=== PATIENT | female | born 1980 | race Caucasian/White ===

== ENCOUNTER 2018-07-26 06:04 | Outpatient (CLI) | payer OTHER, MEDICAID, SELFPAY ==
--- NOTE | 2018-07-26 07:32 | PM.OBTRLD ---
Visit Information Visit Information Comments/Additional reasons for admission: Patient is a 38-year-old female at 36 weeks she is G3 para 2. She received her health care down at [facility]. She comes in with complaints of leaking of fluid. On evaluation in the labor and delivery for she is AmniSure positive. Nurse examined her cervix she has high thick and closed. Patient's NST is reactive. Patient's contractions are intermittent. Patient was receiving her health care and care at [facility] because she is high risk with a previous history of myocardial infarction. Based on her examination reactive NST 36 weeks gestational age status her cervix being high and closed in intermittent contractions we thought it best for her to be discharged from the hospital and transported to [facility]. Her and daughter with her. After reviewing with the patient about driving her down her going by ambulance they felt comfortable as well as I driving down. [facility] was contacted. And they will proceed there.
--- NOTE | 2018-07-26 07:35 | P.TNLD_ITS ---
Visit Information Visit Information Comments/Additional reasons for admission: Patient is a 38-year-old female at 36 weeks she is G3 para 2. She received her health care down at [facility]. She comes in with complaints of leaking of fluid. On evaluation in the labor and delivery for she is AmniSure positive. Nurse examined her cervix she has high thick and closed. Patient's NST is reactive. Patient's contractions are intermittent. Patient was receiving her health care and care at [facility] because she is high risk with a previous history of myocardial infarction. Based on her examination reactive NST 36 weeks gestational age status her cervix being high and closed in intermittent contractions we thought it best for her to be discharged from the hospital and transported to [facility]. Her and daughter with her. After reviewing with the patient about driving her down her going by ambulance they felt comfortable as well as I driving down. [facility] was contacted. And they will proceed there.
== END 2018-07-26 07:10 | disposition home or self-care (01) ==
LOC: LABOR 08:15 → OB 07-28 05:40
PROVIDERS: Visit Provider Family Medicine
DX: O60.03 Preterm labor without delivery, third trimester (principal); Z3A.36 36 weeks gestation of pregnancy
CPT/HCPCS: 59025; 84112; G0378; G0379

== ENCOUNTER 2020-12-10 14:08 | Emergency (ER) | payer OTHER, MEDICAID, SELFPAY ==
[2020-12-10 14:17] VITALS: BP 180/95; PULSE 82; RESP 22; TEMP 37.2; O2SAT 97
[2020-12-10 14:50] LABS: COVID19 -Nasal RAPID Negative (Negative)
[2020-12-10 16:02] VITALS: BP 162/90; PULSE 64; RESP 16; O2SAT 99
[2020-12-10 17:10] VITALS: TEMP 37
--- NOTE | 2020-12-10 17:59 | ED_ITS ---
HPI - Dental/Oral General Chief complaint: Dental/Oral Stated complaint: dizzy/rt upper tooth infection x4 days Time Seen by Provider: 12/10/20 17:59 Source: patient Mode of arrival: Ambulatory Limitations: no limitations History of Present Illness HPI Narrative: This is a 40-year-old female who comes emergency department with multiple complaints the main being that her right posterior 2 has been painful with pain starting to radiate to her jaw and towards her ear. She has also had some throat pain. Patient states she has had 4 days of symptoms. She has felt warm but has not had objective fevers. She does feel a little bit but no syncope. No chest pain or shortness of breath she has had some nausea but states it is improved at this moment. Patient has also had some abdominal discomfort. No diarrhea constipation. She denies frequency, dysuria or urgency. Patient denies any other medical conditions. She states she did crack or tooth about 2 months ago she has a dental appointment but has not been there yet. She is also describe some chills and muscle aches. She denies any other prior surgeries. No allergies to medications. MD Complaint: tooth pain Location: Tooth # (1) Related Data Previous Rx's Medication Instructions Recorded ondansetron HCl [Zofran] 4 mg PO Q6H PRN #10 tab 12/10/20 penicillin V potassium 500 mg PO QID #40 tab 12/10/20 Allergies Allergy/AdvReac Type Severity Reaction Status Date / Time No Known Drug Allergies Allergy Verified 12/10/20 18:06 Review of Systems Review of Systems ROS Unobtainable: All systems reviewed & are unremarkable except as noted in HPI and below Exam Narrative Exam Narrative: GEN: well nourished, well appearing female, alert and oriented x 3, patient appears to be in mild distress. HEENT: Atraumatic, pupils are equal round reactive to light, extraocular movements are intact, nares are clear, TMs are are opaque with fluid bilaterally but no erythema, light reflex is present, there is no conjunctival pallor. Throat is without any exudates, bilateral erythema, mild bilateral tonsillar enlargement, no uvular deviation, no lymphadenopathy. No meningeal signs. No facial swelling, redness or induration or fluctuance noted. HEART: Regular rate and rhythm without murmur, clicks, rubs. No carotid bruits, pulses are equal in upper and lower extremities LUNGS:Lungs clear to auscultation, no wheezes, rales, crackles, chest moves symmetrically ABD:bowel sounds normal, soft, non-tender, no guarding, rebound, rigidity, no masses noted, no hepatosplenomegaly MSCL: Non-tender, no muscle atrophy, full range of motion NEURO:CN 2-12 intact, sensation normal SKIN: Patient has some erythema on her anterior chest, it radiates slightly up towards her neck but no other skin changes appreciated. No vesicles, no blisters. It is not rate it, there is no papules or other changes appreciated it does not appear cellulitic with no more. Initial Vital Signs Initial Vital Signs: Vital Signs Temperature 98.9 F 12/10/20 14:17 Pulse Rate 82 12/10/20 14:17 Respiratory Rate 22 12/10/20 14:17 Blood Pressure 180/95 H 12/10/20 14:17 Pulse Oximetry 97 12/10/20 14:17 Course Orders Ordered: ED Orders 12/10/20 14:33 COVID19 Stat 12/10/20 18:00 Throat Culture Stat Discontinued Medications Ketorolac Tromethamine (Ketorolac 60 Mg/2 Ml Vial) 30 mg IM NOW ONE Stop: 12/10/20 18:00 Last Admin: 12/10/20 18:06 Dose: 30 mg Documented by: JAMIE Ondansetron HCl (Ondansetron 4 Mg Odt) 4 mg SL NOW ONE Stop: 12/10/20 18:00 Last Admin: 12/10/20 18:06 Dose: 4 mg Documented by: JAMIE Vital Signs Vital signs: Vital Signs - 8 hr 12/10/20 14:17 12/10/20 16:02 12/10/20 17:10 Temperature 98.9 F 98.6 F Pulse Rate 82 64 Respiratory Rate 22 16 Blood Pressure 180/95 H 162/90 H Pulse Oximetry 97 99 12/10/20 18:29 Temperature Pulse Rate 62 Respiratory Rate 16 Blood Pressure 145/80 H Pulse Oximetry 99 MDM - Dental/Oral Lab Data Attestation: I reviewed the patient's lab results. Labs: Lab Results 12/10/20 Range/Units 14:33 SARS-CoV-2 (PCR) Negative (Negative) Point of Care Testing Test Results Negative Rapid Strep A Negative Urine Dip Bedside Urine Glucose Negative Bedside Urine Bilirubin - Negative Bedside Urine Ketone - Negative Urine Specific [place] 1.015 Bedside Urine Occult Blood - Negative Bedside Urine pH 6.0 Bedside Urine Protein - Negative Bedside Urine Urobilinogen - Negative Bedside Urine Nitrite - Negative Bedside Urine Leukocytes - Negative Esterase MDM Narrative Medical decision making narrative: 40-year-old female comes with multiple complaints but her main concern is right tooth pain that seems to be radiating towards her ear cheek. She has had some systemic symptoms but does not have any signs of sepsis. She did have a sore throat with some erythema and mild tonsillar enlargement and rash point of care strep was negative. Throat culture was ordered. Patient's urine was negative. She has some improvement pain medication and antinausea medication. Plan to start her on oral antibiotics for dental infection, no obvious sign of abscess at this time. She does have dental appointment on was given low threshold to return for repeat evaluation if she has worsening. Discharge Plan Departure Patient Disposition: Home Clinical Impression: Infected tooth Instructions: DI for Dental Pain Activity Restrictions/Additional Instructions: Follow up with your dentist at your scheduled appointment on . Take antibiotics until completely gone. You may take nausea medication as prescribed take 1 tablet every 6 hours as needed for nausea. Return to the ER for fevers greater 100.4 F, rapidly worsening swelling of your face, cheek, airway, lips or tongue, passing out, shortness of breath, new chest pain, persistent vomiting, stridor high-pitched wheezing when breathing or other new or concerning symptoms. Prescriptions: New penicillin V potassium 500 mg tablet 500 mg PO QID Qty: 40 RF: 0 ondansetron HCl [Zofran] 4 mg tablet 4 mg PO Q6H PRN (Reason: nausea and vomiting) Qty: 10 RF: 0
[2020-12-10] MEDS: KETOROLAC 60 MG/2 ML VIAL 30 MG IM (18:06)
[2020-12-10] MEDS: ONDANSETRON 4 MG ODT SL (18:06)
[2020-12-10 18:29] VITALS: BP 145/80; PULSE 62; RESP 16; O2SAT 99
== END 2020-12-10 18:31 | disposition home or self-care (01) ==
PROVIDERS: Emergency Provider Emergency Medicine
DX: K04.7 Periapical abscess without sinus (principal); R10.9 Unspecified abdominal pain
CPT/HCPCS: 81003; 81025; 87070; 87635; 87880; 96372; 99281; 99283; C9803; J1885

== ENCOUNTER 2021-06-29 11:57 | Emergency (ER) | payer OTHER, MEDICAID, SELFPAY ==
[2021-06-29] VITALS (8 sets, daily range): BP systolic 131–174; BP diastolic 80–110; PULSE 56–85; RESP 12–18; TEMP 36.9; O2SAT 96–98; BMI 26.5
--- NOTE | 2021-06-29 12:22 | DI.RAD.S_ITS ---
PROCEDURE: XR CHEST 1V INDICATIONS: chest pain TECHNIQUE: One view of the chest was acquired. COMPARISON: None. FINDINGS: Surgical changes and devices: None. Lungs and pleura: Lungs are clear. No pleural effusions or pneumothorax. Mediastinum: Mediastinal contours appear normal. Heart size is normal. Bones and chest wall: No suspicious bony lesions. Overlying soft tissues appear unremarkable. IMPRESSION: Portable chest within normal limits. Dictated by: Pako Garza M.D. on 06/29/2021 at 11:57 Approved by: Pako Garza M.D. on 06/29/2021 at 11:57
[2021-06-29 12:41] LABS: COVID19 -Nasal RAPID Negative (Negative)
[2021-06-29 13:28] LABS: Add Manual Diff / Slide Review NO; Basophils Absolute Auto 100 /uL (0-100); Basophils Percent Auto 0.5 % (0-2); Eosinophils Absolute Auto 100 /uL (0-450); Eosinophils Percent Auto 0.6 % (2-4); Hematocrit 43.4 % (36-46); Hemoglobin 14.6 g/dL (12.0-16.0); Lymphocytes Absolute Auto 2100 /uL (1100-4500); Lymphocytes Percent Auto 17.9 % (25-40); Mean Corpuscular HGB Conc 33.6 % (30-36); Mean Corpuscular Hemoglobin 29.7 PG (26-34); Mean Corpuscular Volume 88.4 fL (80-100); Monocytes Absolute Auto 500 /uL (0-900); Neutrophils Absolute Auto 9100 /uL (1500-7000); Platelet Count 295 X10^3/uL (150-400); Red Blood Cell Count 4.91 X10^6/uL (4.0-5.2); Red Cell Distribution Width 13.3 % (11.6-14.8); White Blood Cell Count 11.8 X10^3/uL (4.5-11.0)
[2021-06-29 13:44] LABS: Alanine Aminotransferase 28 IU/L (<35); Albumin 4.4 g/dL (3.5-5.0); Albumin Globulin Ratio 1.5 (1.0-2.8); Alkaline Phosphatase 56 U/L (38-126); Aspartate Aminotransferase 33 IU/L (14-36); BUN Creatinine Ratio 12.1 (6-22); Bilirubin Total 0.6 mg/dL (0.2-1.3); Blood Urea Nitrogen 8 mg/dL (7-17); Calcium 9.1 mg/dL (8.4-10.2); Carbon Dioxide 24 mmol/L (22-32); Chloride 107 mmol/L (98-107); Creatine Kinase 113 U/L (30-135); Estimated Glomerular Filt Rate > 60.0 mL/min (>60); Globulin 2.9 g/dL (1.7-4.1); Glucose 92 mg/dL (70-100); HEMOLYSIS < 15 (0-50); Lipase 69 U/L (23-300); Potassium 3.3 mmol/L (3.4-5.1); Sodium 137 mmol/L (137-145); Total Protein 7.3 g/dL (6.3-8.2)
[2021-06-29 13:55] LABS: Troponin I < 0.012 ng/mL (0.01-0.034)
--- NOTE | 2021-06-29 14:24 | ED_ITS ---
HPI - Headache General Chief Complaint: Headache Stated Complaint: headache for 1 week// numbness going down arms Time Seen by Provider: 06/29/21 14:21 Mode of arrival: Ambulatory Limitations: no limitations History of Present Illness HPI Narrative: Patient is a 41 year old female who presents with headache ongoing for over 1 week. It got significantly worse last night she was unable to sleep. She denies any nausea. She has only taken Tylenol his for pain without any relief. She says last night her pain was wait worse. She denies any photosensitivity or no he has sensitivity. She started having some tingling down both arms. No weakness. She is tearful. She does not typically get headaches. She denies any fever. Related Data Previous Rx's Medication Instructions Recorded ondansetron HCl 4 mg tablet 4 mg PO Q6H PRN #10 tab 12/10/20 (Zofran) penicillin V potassium 500 mg 500 mg PO QID #40 tab 12/10/20 tablet Allergies Allergy/AdvReac Type Severity Reaction Status Date / Time No Known Drug Allergies Allergy Verified 12/10/20 18:06 Review of Systems Review of Systems Narrative: GENERAL: Denies chills, fatigue, malaise, fever, sweats, travel HEENT: Denies sinus pain, ear pain, sore throat, difficulty swallowing, neck pain RESPIRATORY: Denies dyspnea, cough, wheezing, hemoptysis, sputum. CARDIOVASCULAR: Denies chest pain, palpitations, orthopnea, edema GASTROINTESTINAL: Denies nausea, vomiting, abdominal pain, diarrhea, constipation, melena. : Denies dysuria, frequency, incontinence, hematuria, urinary retention, flank pain. MUSCULOSKELETAL: Denies weakness, joint pain, or bony pain SKIN: No rash, no erythema, no pruritus NEUROLOGIC: See HPI PSYCHIATRIC: No concerning psychosocial issues. 12 point review of systems is negative except for those stated above and HPI Patient History Social History Smoking Status: Former smoker Smoking Status: Former smoker Substance Use Type: marijuana Exam Initial Vital Signs Initial Vital Signs: Vital Signs Temperature 98.5 F 06/29/21 12:16 Pulse Rate 85 06/29/21 12:16 Respiratory Rate 18 06/29/21 12:16 Blood Pressure 174/110 H 06/29/21 12:16 Pulse Oximetry 96 06/29/21 12:16 GENERAL: Patient is a 41-year-old female is slightly tearful appears uncomfortable in no acute distress. NECK: Supple no meningeal signs HEENT: Head atraumatic,EOMI, pupils reactive, face symmetric, moist mucous membranes CARDIOVASCULAR: Regular rate and rhythm without murmurs, rubs or gallops. RESPIRATORY: Breath sounds equal bilaterally, no wheezes rales or rhonchi. ABDOMEN: Soft, nontender. Normoactive bowel sounds all 4 quadrants. No guarding or rebound. EXTREMITIES: Normal range of motion, no clubbing or edema. Neurovascularly intact NEUROLOGICAL: Alert and oriented x4.Normal gait and speech. Cranial nerves II through XII grossly intact. Good [id number], good [id number], strength equal bilaterally, no dysarthria or aphasia, sensation in tact to soft touch bilaterally, no visual changes, no facial droop SKIN: Warm, dry, no laceration, no petechiae, no rashes or lesions. Scores NIH Stroke Scale Level of Conciousness: Alert, keenly responsive Ask month/age: Answers both questions correctly. Open/close eyes, close hand: Performs both tasks correctly Best gaze horizontal: Normal Visual reeder: No visual loss Facial palsy: Normal symetrical movement Left arm drift: No drift for full 10 sec Right arm drift: No drift for full 10 sec Left leg drift: No drift for full 5 sec Right leg drift: No drift for full 5 sec Limb ataxia: Absent Sensory on face/arms/legs: Normal, no sensory loss Best language: No aphasia, normal Dysarthria: Normal Extinction or inattention: No abnormality Total NIH Stroke scale score: 0 Course Orders Ordered: ED Orders 06/29/21 12:22 XR chest 1V Stat 06/29/21 12:25 COVID19 -Nasal swab/Pre-Proc Stat 06/29/21 12:29 EKG-12 Lead Stat 06/29/21 13:15 Complete Blood Count AUTO DIFF Stat Comprehensive Metabolic Panel Stat Lipase Stat Troponin & CK Cardiac Panel Stat 06/29/21 14:30 CT head/brain wo con Stat Discontinued Medications Sodium Chloride (Normal Saline 0.9%) 1,000 mls @ 1,000 mls/hr IV BOLUS ONE Stop: 06/29/21 15:29 Last Infusion: 06/29/21 15:58 Dose: 0 mls/hr Documented by: Admin: 06/29/21 14:36 Dose: 1,000 mls/hr Documented by: ANGELINA Ketorolac Tromethamine (Ketorolac 30 Mg/Ml Vial) 30 mg IV NOW ONE Stop: 06/29/21 14:31 Last Admin: 06/29/21 14:35 Dose: 30 mg Documented by: ANGELINA Prochlorperazine (Prochlorperazine 10 Mg/2 Ml Vial) 10 mg IV NOW ONE Stop: 06/29/21 14:31 Last Admin: 06/29/21 14:35 Dose: 10 mg Documented by: ANGELINA Vital Signs Vital signs: Vital Signs - 8 hr 06/29/21 12:16 06/29/21 13:10 06/29/21 13:30 Temperature 98.5 F Pulse Rate 85 72 67 Respiratory Rate 18 12 Blood Pressure 174/110 H Pulse Oximetry 96 98 97 06/29/21 14:00 06/29/21 14:30 06/29/21 14:52 Temperature Pulse Rate 68 76 70 Respiratory Rate 16 15 17 Blood Pressure 131/80 131/81 Pulse Oximetry 97 97 97 06/29/21 15:00 06/29/21 15:30 Temperature Pulse Rate 67 56 L Respiratory Rate 12 17 Blood Pressure Pulse Oximetry 97 97 MDM - Headache Lab Data Result diagrams: 06/29/21 13:15 06/29/21 13:15 Labs: Lab Results 06/29/21 06/29/21 06/29/21 Range/Units 12:25 13:15 13:15 WBC 11.8 H (4.5-11.0) X10^3/uL RBC 4.91 (4.0-5.2) X10^6/uL Hgb 14.6 (12.0-16.0) g/dL Hct 43.4 (36-46) % MCV 88.4 (80-100) fL MCH 29.7 (26-34) PG MCHC 33.6 (30-36) % RDW 13.3 (11.6-14.8) % Plt Count 295 (150-400) X10^3/uL Neut % (Auto) 77.0 H (50-75) % Lymph % (Auto) 17.9 L (25-40) % Wilkes % (Auto) 4.0 (3-14) % Eos % (Auto) 0.6 L (2-4) % Baso % (Auto) 0.5 (0-2) % Neut # (Auto) 9100 H (1352-1357) /uL Lymph # (Auto) 2100 (8378-6509) /uL Wilkes # (Auto) 500 (0-900) /uL Eos # (Auto) 100 (0-450) /uL Baso # (Auto) 100 (0-100) /uL Sodium 137 (137-145) mmol/L Potassium 3.3 L (3.4-5.1) mmol/L Chloride 107 (98-107) mmol/L Carbon Dioxide 24 (22-32) mmol/L BUN 8 (7-17) mg/dL Creatinine 0.66 (0.52-1.04) mg/dL Estimated GFR > 60.0 (>60) mL/min BUN/Creatinine Ratio 12.1 (6-22) Glucose 92 (70-100) mg/dL Calcium 9.1 (8.4-10.2) mg/dL Total Bilirubin 0.6 (0.2-1.3) mg/dL AST 33 (14-36) IU/L ALT 28 (<35) IU/L Alkaline Phosphatase 56 (38-126) U/L Total Creatine Kinase 113 (30-135) U/L CK-MB (CK-2) 1.10 (<2.37) ng/mL CK-MB (CK-2) Rel Index 1.0 L (1.5-5.0) % Troponin I < 0.012 (0.01-0.034) ng/mL Total Protein 7.3 (6.3-8.2) g/dL Albumin 4.4 (3.5-5.0) g/dL Globulin 2.9 (1.7-4.1) g/dL Albumin/Globulin Ratio 1.5 (1.0-2.8) Lipase 69 (23-300) U/L SARS-CoV-2 (PCR) Negative (Negative) Imaging Data CT scan - head: Radiologist's Impression: PROCEDURE:? CT HEAD/BRAIN WO CON ? INDICATIONS:? worst headache of life ? TECHNIQUE:? Noncontrast 4.5 mm thick angled axial sections acquired from the foramen magnum to the vertex, with coronal and sagittal reformats.? For radiation dose reduction, the following was used:? automated exposure control, adjustment of mA and/or kV according to patient size.? ? COMPARISON:? None. ? FINDINGS:? Image quality:? Excellent.? ? CSF spaces:? Basal cisterns are patent.? No extra-axial fluid collections.? Ventricles are normal in size and shape.? ? Brain:? No midline shift.? No intracranial masses or hemorrhage.? Ellis-white matter interface is normal.? ? Skull and face:? Calvarium and visualized facial bones are intact, without suspicious lesions.? ? Sinuses:? Visualized sinuses and mastoids are clear.? ? IMPRESSION:? No CT evidence of acute intracranial process.? ? ? Dictated by: Marcella Dangelo M.D. on 06/29/2021 at 14:47 ? ? Chest x-ray: Radiologist's Impression: PROCEDURE:? XR CHEST 1V ? INDICATIONS:? chest pain ? TECHNIQUE:? One view of the chest was acquired.? ? COMPARISON:? None. ? FINDINGS:? ? Surgical changes and devices:? None.? ? Lungs and pleura:? Lungs are clear.? No pleural effusions or pneumothorax.? ? Mediastinum:? Mediastinal contours appear normal.? Heart size is normal.? ? Bones and chest wall:? No suspicious bony lesions.? Overlying soft tissues appear unremarkable.? ? ? IMPRESSION:? ? Portable chest within normal limits. ? ? ? Dictated by: Pako Garza M.D. on 06/29/2021 at 11:57 ? ? ECG Data Interpretation: Normal sinus rhythm rate 78 NJ interval 132 QRS 90 QTC 469 [place]ino inversion noted in the 3 nonpathologic Q-wave noted in lead [address] changes no priors to compare MDM Narrative Medical decision making narrative: Patient has been having headache ongoing for 1 week for rest of week getting worse not relieved with Tylenol. She is having numbness and tingling in both her but no of focal deficits. Head CT is negative. If the headache improves with Compazine Toradol and fluids. At this time she feels ready and able to go home. Discharge Plan Departure Patient Disposition: Home Clinical Impression: Headache Instructions: DI for Headache Activity Restrictions/Additional Instructions: *You have been diagnosed with headache *What to do: At this time CT scan blood work COVID are all negative. If you continue to have headaches you may need Neurology refer *Continue to take medications as directed Motrin 800 mg every 8 hours if needed for ghec-fn-qaguhlar pain Tylenol 1000 mg every 6 hours if needed for bukj-sg-bybllomy pain *Follow up with your primary care provider in 2-3 days *Return to ER if you should have increasing pain, fever, weakness, numbness, tingling any new, worsening or concerning symptoms Prescriptions: No Action penicillin V potassium 500 mg tablet 500 mg PO QID Qty: 40 RF: 0 ondansetron HCl [Zofran] 4 mg tablet 4 mg PO Q6H PRN (Reason: nausea and vomiting) Qty: 10 RF: 0 Referrals: Located Within [facility] [Outside]
--- NOTE | 2021-06-29 14:30 | DI.CT.S_ITS ---
PROCEDURE: CT HEAD/BRAIN WO CON INDICATIONS: worst headache of life TECHNIQUE: Noncontrast 4.5 mm thick angled axial sections acquired from the foramen magnum to the vertex, with coronal and sagittal reformats. For radiation dose reduction, the following was used: automated exposure control, adjustment of mA and/or kV according to patient size. COMPARISON: None. FINDINGS: Image quality: Excellent. CSF spaces: Basal cisterns are patent. No extra-axial fluid collections. Ventricles are normal in size and shape. Brain: No midline shift. No intracranial masses or hemorrhage. Ellis-white matter interface is normal. Skull and face: Calvarium and visualized facial bones are intact, without suspicious lesions. Sinuses: Visualized sinuses and mastoids are clear. IMPRESSION: No CT evidence of acute intracranial process. Dictated by: Marcella Dangelo M.D. on 06/29/2021 at 14:47 Approved by: Marcella Dangelo M.D. on 06/29/2021 at 14:48
[2021-06-29] MEDS: KETOROLAC 30 MG/ML VIAL IV (14:35)
[2021-06-29] MEDS: PROCHLORPERAZINE 10 MG/2 ML VIAL IV (14:35)
[2021-06-29] MEDS: SODIUM CHLORIDE 0.9% 1,000 ML 1000 ML IV (14:36)
== END 2021-06-29 15:58 | disposition home or self-care (01) ==
PROVIDERS: Emergency Provider Emergency Medicine
DX: R51.9 Headache, unspecified (principal); Z20.822 Contact with and (suspected) exposure to COVID-19
CPT/HCPCS: 36415; 70450; 71045; 80053; 82550; 82553; 83690; 84484; 85025; 87635; 93005; 96361; 96374; 96375; 99284; C9803; J0780; J1885

== ENCOUNTER 2023-06-25 13:51 | Emergency (ER) | payer OTHER, MEDICAID, SELFPAY ==
[2023-06-25] VITALS (9 sets, daily range): BP systolic 139–192; BP diastolic 84–105; PULSE 60–100; RESP 16; TEMP 36.7; O2SAT 98–99; BMI 26.5
[2023-06-25 14:21] LABS: Add Manual Diff / Slide Review NO; Basophils Absolute Auto 100 /uL (0-100); Basophils Percent Auto 0.8 % (0-2); Eosinophils Absolute Auto 100 /uL (0-450); Eosinophils Percent Auto 0.8 % (2-4); Hematocrit 41.7 % (36-46); Hemoglobin 14.4 g/dL (12.0-16.0); Lymphocytes Absolute Auto 2300 /uL (1100-4500); Lymphocytes Percent Auto 24.6 % (25-40); Mean Corpuscular HGB Conc 34.6 % (30-36); Mean Corpuscular Hemoglobin 30.3 PG (26-34); Mean Corpuscular Volume 87.6 fL (80-100); Monocytes Absolute Auto 600 /uL (0-900); Monocytes Percent Auto 6.2 % (3-14); Neutrophils Absolute Auto 6300 /uL (1500-7000); Neutrophils Percent Auto 67.6 % (50-75); Platelet Count 286 X10^3/uL (150-400); Red Blood Cell Count 4.75 X10^6/uL (4.0-5.2); Red Cell Distribution Width 13.1 % (11.6-14.8); White Blood Cell Count 9.3 X10^3/uL (4.5-11.0)
[2023-06-25 14:35] LABS: Alanine Aminotransferase 35 IU/L (<35); Albumin 4.5 g/dL (3.5-5.0); Albumin Globulin Ratio 1.6 (1.0-2.8); Alkaline Phosphatase 56 U/L (38-126); Aspartate Aminotransferase 36 IU/L (14-36); BUN Creatinine Ratio 9.2 (6-22); Bilirubin Total 0.5 mg/dL (0.2-1.3); Blood Urea Nitrogen 7 mg/dL (7-17); Calcium 9.2 mg/dL (8.4-10.2); Carbon Dioxide 25 mmol/L (22-32); Chloride 106 mmol/L (98-107); Estimated Glomerular Filt Rate > 60 mL/min (>60); Globulin 2.9 g/dL (1.7-4.1); Glucose 92 mg/dL (70-100); HEMOLYSIS 16 (0-50); Lipase 113 U/L (23-300); Potassium 3.3 mmol/L (3.4-5.1); Sodium 139 mmol/L (137-145); Total Protein 7.4 g/dL (6.3-8.2)
[2023-06-25 14:59] LABS: Influenza A - CEPHEID Flu A NEGATIVE (NEGATIVE); Influenza B - CEPHEID Flu B NEGATIVE (NEGATIVE); Respiratory Syncytial Virus Negative (Negative)
[2023-06-25 15:00] LABS: COVID-19 CEPHEID 4-PLEX PCR Negative (Negative)
--- NOTE | 2023-06-25 16:42 | DI.CT.S_ITS ---
PROCEDURE: CT ABDOMEN PELVIS W CON INDICATIONS: abdominal pain, N/V/D TECHNIQUE: After the administration of oral and IV contrast, axial sections were acquired from the lung bases to the pubic symphysis. Coronal and sagittal reformats were performed. For radiation dose reduction, the following was used: automated exposure control, adjustment of mA and/or kV according to patient size. COMPARISON: None. FINDINGS: Image quality: Excellent. Lung bases: Bibasilar scars and atelectasis. Small hiatal hernia. Heart: No significant findings. ABDOMEN: Liver: Unremarkable. Gallbladder: Unremarkable. Biliary ducts: Unremarkable. Pancreas: Unremarkable. Spleen: Unremarkable. Adrenal Glands: Unremarkable. Kidneys and Ureters: Unremarkable. Stomach and Bowel: Stomach, small bowel loops, and colon are normal in caliber. Appendix is normal. There are few colonic diverticula. No CT findings to suggest acute diverticulitis. Peritoneum: No abnormal intraperitoneal fluid. No free air. Ventral Wall: No hernia. Abdominal Nodes: No retroperitoneal or mesenteric adenopathy by size criteria. Vessels: Aorta and inferior vena cava are normal in size. PELVIS: Pelvic Organs: There is a 1.6 cm cyst in the left ovary with peripheral enhancement, most likely a corpus luteum. Uterus and right ovary are unremarkable. No free fluid in the cul-de-sac or adnexa. Bladder: Unremarkable. Pelvic Nodes: No enlarged lymph nodes. Miscellaneous: No inguinal hernias are seen. Bones: Unremarkable. IMPRESSION: 1. No acute inflammatory process is seen on CT in abdomen or pelvis. 2. Mild diverticulosis. No diverticulitis. 3. Normal appendix. 4. A 1.4 cm corpus luteal cyst in the left ovary. 5. Bibasilar scars and atelectasis. Dictated by: Alton Vergara M.D. on 06/25/2023 at 16:56 Approved by: Alton Vergara M.D. on 06/25/2023 at 17:00
--- NOTE | 2023-06-25 16:42 | ED.ABDPAIN ---
HPI - Abdominal Pain General Chief Complaint: Abdominal Pain Stated Complaint: stomach pains Time Seen by Provider: 06/25/23 14:33 History of Present Illness HPI narrative: 43-year-old female without significant chronic medical history presents with a chief complaint of about 1 week of multiple episodes of diarrhea along with cramping abdominal pain. She states her discomfort seems to build until she has a bowel movement at which point it improves. She denies recent antibiotics, travel, exposure to other ill persons or bad food. Related Data Previous Rx's Medication Instructions Recorded ondansetron HCl 4 mg tablet 4 mg PO Q6H PRN nausea and 12/10/20 (Zofran) vomiting #10 tabs penicillin V potassium 500 mg 500 mg PO QID #40 tabs 12/10/20 tablet hydrocodone 5 mg-acetaminophen 325 1 tab PO Q4-6H PRN pain #10 tabs 06/25/23 mg tablet hyoscyamine sulfate 0.125 mg tablet 0.125 mg PO BID-QID PRN dyspepsia 06/25/23 #20 tabs hyoscyamine sulfate 0.125 mg tablet 0.125 mg PO BID-QID PRN dyspepsia 06/25/23 #20 tabs ondansetron 4 mg disintegrating 4 mg PO TID-QID PRN nausea and 06/25/23 tablet vomiting #10 tabs ondansetron 4 mg disintegrating 4 mg PO TID-QID PRN nausea and 06/25/23 tablet vomiting #10 tabs Allergies Allergy/AdvReac Type Severity Reaction Status Date / Time No Known Drug Allergies Allergy Verified 12/10/20 18:06 Review of Systems Review of Systems Narrative: GENERAL: Denies chills, fatigue, malaise, fever, sweats. HEENT: Denies sinus pain, ear pain, sore throat, difficulty swallowing, dizziness. RESPIRATORY: Denies dyspnea, cough, wheezing, hemoptysis, sputum. CARDIOVASCULAR: Denies chest pain, palpitations, orthopnea, edema, GASTROINTESTINAL: See HPI : Denies dysuria, frequency, incontinence, hematuria, urinary retention. MUSCULOSKELETAL: denies weakness, joint pain, or bony pain SKIN: Denies rash, skin lesions, or other NEUROLOGIC: Denies weakness, headache, numbness, change in speech, confusion, seizures, incoordination. PSYCHIATRIC: No concerning psychosocial issues. 12 point review of systems is negative except for those stated above Patient History Social History Smoking Status: Former smoker Smoking Status: Former smoker Substance Use Type: marijuana Exam Narrative Exam Narrative: GENERAL: 43[] year old patient appears stated age. Well-developed patient, in mild distress. HEAD: Atraumatic. Normocephalic. EYES: Pupils equal round and reactive. Extraocular motions intact. No scleral icterus. No injection or drainage. ENT: Nose without bleeding, purulent drainage. Throat without erythema, tonsillar hypertrophy or exudate. Airway patent. NECK: Trachea midline. Non tender CARDIOVASCULAR: Regular rate and rhythm without murmurs, gallops, or rubs. RESPIRATORY: Clear to auscultation. Breath sounds equal bilaterally. No wheezes, rales, or rhonchi. GASTROINTESTINAL: Abdomen soft, bowel sounds present, increased in all quadrants, nondistended. EXTREMITIES: No edema or joint tenderness. BACK: Nontender without deformity or crepitance. No flank tenderness. NEURO: AOx3. SKIN: No rash or erythema of visible areas Initial Vital Signs Initial Vital Signs: Vital Signs Temperature 98.1 F 06/25/23 13:56 Pulse Rate 100 H 06/25/23 13:56 Respiratory Rate 16 06/25/23 13:56 Blood Pressure 177/100 H 06/25/23 13:56 Pulse Oximetry 98 06/25/23 13:56 Oxygen Delivery Method Room Air 06/25/23 13:56 Course Orders Ordered: Discontinued Medications Sodium Chloride (Normal Saline 0.9%) 1,000 mls @ 1,000 mls/hr IV BOLUS ONE Stop: 06/25/23 18:24 Last Infusion: 06/25/23 18:35 Dose: 0 mls/hr Documented By: Admin: 06/25/23 17:35 Dose: 1,000 mls/hr Documented By: MAXX Ondansetron HCl (Ondansetron 4 Mg Odt) 4 mg PO NOW PRN PRN Reason: Nausea And Vomiting Ondansetron HCl (Ondansetron 4 Mg/2 Ml Inj) 4 mg IV NOW PRN PRN Reason: Nausea And Vomiting Pantoprazole Sodium (Pantoprazole 40 Mg Vial) 40 mg IV NOW ONE Stop: 06/25/23 17:26 Last Admin: 06/25/23 17:35 Dose: 40 mg Documented By: SB Vital Signs Vital signs: Vital Signs - 8 hr 06/25/23 13:56 06/25/23 14:54 06/25/23 14:55 Temperature 98.1 F Pulse Rate 100 H 82 Respiratory Rate 16 Blood Pressure 177/100 H Pulse Oximetry 98 98 99 Oxygen Delivery Method Room Air Room Air 06/25/23 14:55 06/25/23 14:56 06/25/23 14:57 Temperature Pulse Rate 78 Respiratory Rate Blood Pressure 192/105 H 182/97 H Pulse Oximetry 99 Oxygen Delivery Method 06/25/23 14:57 06/25/23 15:00 06/25/23 15:01 Temperature Pulse Rate 78 70 72 Respiratory Rate Blood Pressure Pulse Oximetry 98 99 98 Oxygen Delivery Method 06/25/23 15:01 06/25/23 15:15 06/25/23 15:15 Temperature Pulse Rate 71 Respiratory Rate Blood Pressure 159/84 H 167/95 H Pulse Oximetry 99 Oxygen Delivery Method Room Air MDM - Abdominal Pain Lab Data 06/25/23 14:16 06/25/23 14:16 Labs: Lab Results 06/25/23 06/25/23 06/25/23 Range/Units 14:08 14:16 14:16 WBC 9.3 (4.5-11.0) X10^3/uL RBC 4.75 (4.0-5.2) X10^6/uL Hgb 14.4 (12.0-16.0) g/dL Hct 41.7 (36-46) % MCV 87.6 (80-100) fL MCH 30.3 (26-34) PG MCHC 34.6 (30-36) % RDW 13.1 (11.6-14.8) % Plt Count 286 (150-400) X10^3/uL Neut % (Auto) 67.6 (50-75) % Lymph % (Auto) 24.6 L (25-40) % [place] % (Auto) 6.2 (3-14) % Eos % (Auto) 0.8 L (2-4) % Baso % (Auto) 0.8 (0-2) % Neut # (Auto) 6300 (3273-6137) /uL Lymph # (Auto) 2300 (5617-2323) /uL [place] # (Auto) 600 (0-900) /uL Eos # (Auto) 100 (0-450) /uL Baso # (Auto) 100 (0-100) /uL Sodium 139 (137-145) mmol/L Potassium 3.3 L (3.4-5.1) mmol/L Chloride 106 (98-107) mmol/L Carbon Dioxide 25 (22-32) mmol/L BUN 7 (7-17) mg/dL Creatinine 0.76 (0.52-1.04) mg/dL Estimated GFR > 60 (>60) mL/min BUN/Creatinine Ratio 9.2 (6-22) Glucose 92 (70-100) mg/dL Calcium 9.2 (8.4-10.2) mg/dL Total Bilirubin 0.5 (0.2-1.3) mg/dL AST 36 (14-36) IU/L ALT 35 H (<35) IU/L Alkaline Phosphatase 56 (38-126) U/L Total Protein 7.4 (6.3-8.2) g/dL Albumin 4.5 (3.5-5.0) g/dL Globulin 2.9 (1.7-4.1) g/dL Albumin/Globulin Ratio 1.6 (1.0-2.8) Lipase 113 (23-300) U/L SARS-CoV-2 (PCR) Negative (Negative) Influenza A (RT-PCR) Flu a negative (NEGATIVE) Influenza B (RT-PCR) Flu b negative (NEGATIVE) RSV (PCR) Negative (Negative) Point of care testing: Point of Care Testing Test Results Negative Urine Dip Bedside Urine Glucose Negative Bedside Urine Bilirubin - Negative Bedside Urine Ketone - Negative Urine Specific [place] 1.010 Bedside Urine Occult Blood - Negative Bedside Urine pH 6.5 Bedside Urine Protein - Negative Bedside Urine Urobilinogen - Negative Bedside Urine Nitrite - Negative Bedside Urine Leukocytes - Negative Esterase MDM Narrative Medical decision making narrative: [43] year old patient presents with nausea, diarrhea and crampy, colicky abdominal pain Multiple etiologies for patient's symptoms considered including, but not limited to: [Infectious diarrhea versus bowel obstruction versus ovarian problem versus other] Prior Charts reviewed in our EMR Primary Historian: patient Labs reviewed and interpreted by myself: No leukocytosis or left shift, no signs of anemia, slight decrease in potassium at 3.3, other electrolytes and renal function at baseline, LFTs and bilirubin within normal, urine without signs of infection, negative Imaging reviewed: CT of the abdomen and pelvis with IV contrast demonstrates no acute inflammatory process, mild diverticulosis, normal appendix, 1.4 cm corpus luteal cyst in the left ovary Patient's history and physical exam reassuring, multiple diagnoses considered as noted above. No signs of sepsis, vital signs stable, labs largely unremarkable, imaging demonstrates no bowel obstruction, diverticulitis or other significant finding. No ability to produce a stool sample here in the department, no indication for a specific treatment other than symptomatic. Pain is well controlled, tolerating orals and appropriate for discharge Patient's symptoms improved over duration of stay with above-stated therapies. Findings and discharge diagnosis discussed with patient/family followed by verbalization of understanding Return precautions discussed with patient/family whom verbalize understanding of diagnosis and plan Discharge Plan Departure Patient Disposition: Home Clinical Impression: Diarrhea, Abdominal pain Instructions: Diarrhea, DI for Abdominal Pain-Adult Activity Restrictions/Additional Instructions: *You have been diagnosed with [abdominal pain] * As we discussed your history and physical exam as well as labs and imaging are very reassuring. There is no evidence of any severe diagnoses that would require a specific or immediate intervention. *What to do: *Please continue to take your regular medications as directed. [x ] New medication prescriptions sent to your pharmacy: [ [facility]] *Please follow up with your primary care provider in 2-3 days, call for an appointment. Let them know you were seen in the Emergency Department and that we ask that you be seen in follow up. We will electronically transmit a record of today's note if your PCP is in our system *Please consider a clear liquid diet for the next 24-48 hours and then slowly advance to regular as tolerated. Also, try to avoid alcohol, nicotine, caffeine, spicy, acidic or fatty foods as this may worsen your symptoms *If you do not have a primary care provider please contact the [facility] Resource line at [phone]. They will ask some questions about your medical history and help get you set up with a doctor in the community. *Return to Emergency Department if you should have any new, worsening or concerning symptoms, such as [fever greater than 101 F, shaking chills, worsening pain, persistent vomiting or other bothersome symptoms] Prescriptions: New hyoscyamine sulfate 0.125 mg tablet 0.125 mg PO BID-QID PRN (Reason: dyspepsia) Qty: 20 0RF ondansetron 4 mg tablet,disintegrating 4 mg PO TID-QID PRN (Reason: nausea and vomiting) Qty: 10 0RF hydrocodone-acetaminophen 5-325 mg tablet 1 tab PO Q4-6H PRN (Reason: pain) Qty: 10 0RF hyoscyamine sulfate 0.125 mg tablet 0.125 mg PO BID-QID PRN (Reason: dyspepsia) Qty: 20 0RF ondansetron 4 mg tablet,disintegrating 4 mg PO TID-QID PRN (Reason: nausea and vomiting) Qty: 10 0RF No Action penicillin V potassium 500 mg tablet 500 mg PO QID Qty: 40 0RF ondansetron HCl [Zofran] 4 mg tablet 4 mg PO Q6H PRN (Reason: nausea and vomiting) Qty: 10 0RF Stand Alone Forms: Patient Portal/API
[2023-06-25] MEDS: SODIUM CHLORIDE 0.9% 1,000 ML 1000 ML IV (17:35)
[2023-06-25] MEDS: PANTOPRAZOLE 40 MG VIAL IV (17:35)
== END 2023-06-25 18:35 | disposition home or self-care (01) ==
PROVIDERS: Emergency Provider Emergency Medicine
DX: R10.9 Unspecified abdominal pain (principal); R19.7 Diarrhea, unspecified; Z20.822 Contact with and (suspected) exposure to COVID-19
CPT/HCPCS: 0241U; 36415; 74177; 80053; 81003; 81025; 83690; 85025; 96361; 96374; 99284; C9113; Q9967

== ENCOUNTER 2024-01-01 08:45 | Emergency (ER) | payer OTHER, MEDICAID, SELFPAY ==
[2024-01-01 08:55] VITALS: BP 141/88; PULSE 94; RESP 16; TEMP 36.6; O2SAT 97
--- NOTE | 2024-01-01 09:03 | ED.GENADULT ---
HPI - General Adult General Chief complaint: Abdominal Pain Stated complaint: t-7 pain in abd and stomach throat closing Time Seen by Provider: 01/01/24 08:46 Source: patient Mode of arrival: Ambulatory History of Present Illness HPI narrative: 43-year-old female who stated about 7 days ago she started to have generalized abdominal discomfort. She stated that it then started to go up into her chest. She now states she feels like her throat is closing off. Those symptoms started last evening. She has having a sore throat. Has had subjective fevers and body aches. Tested herself for COVID at home and it was negative. No skin rashes. No urinary symptoms. No change in bowel habits. Related Data Previous Rx's Medication Instructions Recorded ondansetron HCl 4 mg tablet 4 mg PO Q6H PRN nausea and 12/10/20 (Zofran) vomiting #10 tabs penicillin V potassium 500 mg 500 mg PO QID #40 tabs 12/10/20 tablet hydrocodone 5 mg-acetaminophen 325 1 tab PO Q4-6H PRN pain #10 tabs 06/25/23 mg tablet hyoscyamine sulfate 0.125 mg tablet 0.125 mg PO BID-QID PRN dyspepsia 06/25/23 #20 tabs hyoscyamine sulfate 0.125 mg tablet 0.125 mg PO BID-QID PRN dyspepsia 06/25/23 #20 tabs ondansetron 4 mg disintegrating 4 mg PO TID-QID PRN nausea and 06/25/23 tablet vomiting #10 tabs ondansetron 4 mg disintegrating 4 mg PO TID-QID PRN nausea and 06/25/23 tablet vomiting #10 tabs Allergies Allergy/AdvReac Type Severity Reaction Status Date / Time No Known Drug Allergies Allergy Verified 12/10/20 18:06 Review of Systems Constitutional Constitutional: Reports system reviewed and no additional complaints, except as documented ENT Ears, Nose, Mouth, and Throat: Reports system reviewed and no additional complaints, except as documented Gastrointestinal Gastrointestinal: Reports system reviewed and no additional complaints, except as documented Genitourinary Genitourinary: Reports system reviewed and no additional complaints, except as documented Integumentary/Breasts Skin/Breast: Reports system reviewed and no additional complaints, except as documented Neurologic Neurologic: Reports system reviewed and no additional complaints, except as documented Patient History Social History Smoking Status: Former smoker Smoking Status: Former smoker Substance Use Type: marijuana Exam Initial Vital Signs Initial Vital Signs: Vital Signs Temperature 98 F 01/01/24 08:55 Pulse Rate 94 H 01/01/24 08:55 Respiratory Rate 16 01/01/24 08:55 Blood Pressure 141/88 H 01/01/24 08:55 Pulse Oximetry 97 01/01/24 08:55 Oxygen Delivery Method Room Air 01/01/24 08:55 Const General: cooperative, comfortable and No ill appearing HENID Head: normal to inspection and normocephalic Mouth: moist mucous membranes Throat: posterior oropharynx normal Neck Lymphatic: lymphadenopathy Resp Effort & Inspection: normal respiratory effort Auscultation: clear to auscultation bilaterally Cardio Rate: regular rate GI Inspection: normal to inspection and non-distended Palpation: soft, No firm, No guarding and No tender Skin General: no rashes or lesions noted Neuro General: patient alert, patient awake and moves all extremities Extrem General: capillary refill normal Course Orders Ordered: ED Orders 01/01/24 09:20 Complete Blood Count AUTO DIFF Stat Comprehensive Metabolic Panel Stat Covid-19 + FLU A/B + RSV - PCR Stat Lipase Stat Test Serum,Qual Stat Discontinued Medications Ketorolac Tromethamine (Ketorolac 30 Mg/Ml Vial) 30 mg IV NOW ONE Stop: 01/01/24 09:04 Last Admin: 01/01/24 09:34 Dose: 30 mg Documented By: BUTCH Vital Signs Vital signs: Vital Signs - 8 hr 01/01/24 08:55 Temperature 98 F Pulse Rate 94 H Respiratory Rate 16 Blood Pressure 141/88 H Pulse Oximetry 97 Oxygen Delivery Method Room Air Medical Decision Making Lab Data 01/01/24 09:20 01/01/24 09:20 Labs: Lab Results 01/01/24 Range/Units 09:20 WBC 9.2 (4.5-11.0) X10^3/uL RBC 4.74 (4.0-5.2) X10^6/uL Hgb 14.7 (12.0-16.0) g/dL Hct 42.7 (36-46) % MCV 90.1 (80-100) fL MCH 31.1 (26-34) PG MCHC 34.5 (30-36) % RDW 13.8 (11.6-14.8) % Plt Count 246 (150-400) X10^3/uL Neut % (Auto) 71.4 (50-75) % Lymph % (Auto) 20.0 L (25-40) % [place] % (Auto) 6.4 (3-14) % Eos % (Auto) 1.8 L (2-4) % Baso % (Auto) 0.4 (0-2) % Neut # (Auto) 6600 (2500-1370) /uL Lymph # (Auto) 1800 (5766-3801) /uL [place] # (Auto) 600 (0-900) /uL Eos # (Auto) 200 (0-450) /uL Baso # (Auto) 0 (0-100) /uL Sodium 140 (137-145) mmol/L Potassium 3.7 (3.4-5.1) mmol/L Chloride 107 (98-107) mmol/L Carbon Dioxide 25 (22-32) mmol/L BUN 12 (7-17) mg/dL Creatinine 0.69 (0.52-1.04) mg/dL Estimated GFR > 60 (>60) mL/min BUN/Creatinine Ratio 17.4 (6-22) Glucose 95 (70-100) mg/dL Calcium 9.0 (8.4-10.2) mg/dL Total Bilirubin 0.9 (0.2-1.3) mg/dL AST 49 H (14-36) IU/L ALT 59 H (<35) IU/L Alkaline Phosphatase 74 (38-126) U/L Total Protein 7.7 (6.3-8.2) g/dL Albumin 4.4 (3.5-5.0) g/dL Globulin 3.3 (1.7-4.1) g/dL Albumin/Globulin Ratio 1.3 (1.0-2.8) Lipase 65 (23-300) U/L Serum , Qual Negative (Negative) SARS-CoV-2 (PCR) Negative (Negative) Influenza A (RT-PCR) Flu a negative (NEGATIVE) Influenza B (RT-PCR) Flu b negative (NEGATIVE) RSV (PCR) Negative (Negative) Point of Care Testing Test Results Negative Point of care testing: Point of Care Testing Test Results Negative MDM Narrative Medical decision making narrative: Patient has a benign exam. Low suspicion for anaphylaxis. No respiratory distress. Tolerating oral intake. Labs are unremarkable. No indication for further radiologic studies. Was given a dose of steroids to try to help with the lymphadenopathy. Will discharge patient home with return precautions. Patient expressed understanding and agreement. Discharge Plan Departure Patient Disposition: Home Clinical Impression: Lymphadenopathy, Abdominal pain Instructions: DI for Abdominal Pain-Adult, DI for Lymphadenopathy Activity Restrictions/Additional Instructions: Recommend that you continue to take all of your medications as directed. Return to the emergency department for new or worsening symptoms. Contact your primary doctor for a follow-up. Prescriptions: No Action hyoscyamine sulfate 0.125 mg tablet 0.125 mg PO BID-QID PRN (Reason: dyspepsia) Qty: 20 0RF ondansetron 4 mg tablet,disintegrating 4 mg PO TID-QID PRN (Reason: nausea and vomiting) Qty: 10 0RF hydrocodone-acetaminophen 5-325 mg tablet 1 tab PO Q4-6H PRN (Reason: pain) Qty: 10 0RF hyoscyamine sulfate 0.125 mg tablet 0.125 mg PO BID-QID PRN (Reason: dyspepsia) Qty: 20 0RF ondansetron 4 mg tablet,disintegrating 4 mg PO TID-QID PRN (Reason: nausea and vomiting) Qty: 10 0RF penicillin V potassium 500 mg tablet 500 mg PO QID Qty: 40 0RF ondansetron HCl [Zofran] 4 mg tablet 4 mg PO Q6H PRN (Reason: nausea and vomiting) Qty: 10 0RF Stand Alone Forms: Patient Portal/API
--- NOTE | 2024-01-01 09:12 | PC.NURSE ---
MD Velasquez informed pt took naproxen prior to arrival. MD Velasquez stated to still give torodol.
[2024-01-01 09:34] LABS: Add Manual Diff / Slide Review NO; Basophils Absolute Auto 0 /uL (0-100); Basophils Percent Auto 0.4 % (0-2); Eosinophils Absolute Auto 200 /uL (0-450); Eosinophils Percent Auto 1.8 % (2-4); Hematocrit 42.7 % (36-46); Hemoglobin 14.7 g/dL (12.0-16.0); Lymphocytes Absolute Auto 1800 /uL (1100-4500); Mean Corpuscular HGB Conc 34.5 % (30-36); Mean Corpuscular Hemoglobin 31.1 PG (26-34); Mean Corpuscular Volume 90.1 fL (80-100); Monocytes Absolute Auto 600 /uL (0-900); Monocytes Percent Auto 6.4 % (3-14); Neutrophils Absolute Auto 6600 /uL (1500-7000); Neutrophils Percent Auto 71.4 % (50-75); Platelet Count 246 X10^3/uL (150-400); Red Blood Cell Count 4.74 X10^6/uL (4.0-5.2); Red Cell Distribution Width 13.8 % (11.6-14.8); White Blood Cell Count 9.2 X10^3/uL (4.5-11.0)
[2024-01-01] MEDS: KETOROLAC 30 MG/ML VIAL IV (09:34)
[2024-01-01 09:50] LABS: Alanine Aminotransferase 59 IU/L (<35); Albumin 4.4 g/dL (3.5-5.0); Albumin Globulin Ratio 1.3 (1.0-2.8); Alkaline Phosphatase 74 U/L (38-126); Aspartate Aminotransferase 49 IU/L (14-36); BUN Creatinine Ratio 17.4 (6-22); Bilirubin Total 0.9 mg/dL (0.2-1.3); Blood Urea Nitrogen 12 mg/dL (7-17); Carbon Dioxide 25 mmol/L (22-32); Chloride 107 mmol/L (98-107); Estimated Glomerular Filt Rate > 60 mL/min (>60); Globulin 3.3 g/dL (1.7-4.1); Glucose 95 mg/dL (70-100); HEMOLYSIS < 15 (0-50); Lipase 65 U/L (23-300); Potassium 3.7 mmol/L (3.4-5.1); Sodium 140 mmol/L (137-145); Total Protein 7.7 g/dL (6.3-8.2)
[2024-01-01 10:04] LABS: Pregnancy Test Serum,Qual Negative (Negative)
[2024-01-01 11:05] LABS: Influenza A - CEPHEID Flu A NEGATIVE (NEGATIVE); Influenza B - CEPHEID Flu B NEGATIVE (NEGATIVE); Respiratory Syncytial Virus Negative (Negative)
[2024-01-01 11:14] LABS: COVID-19 CEPHEID 4-PLEX PCR Negative (Negative)
[2024-01-01] MEDS: dexAMETHasone 4 MG TABLET 12 MG PO (11:38)
[2024-01-01 11:49] VITALS: BP 170/87; PULSE 67; RESP 17; O2SAT 98
== END 2024-01-01 11:50 | disposition home or self-care (01) ==
PROVIDERS: Emergency Provider Emergency Medicine
DX: R59.1 Generalized enlarged lymph nodes (principal); R10.84 Generalized abdominal pain; Z20.822 Contact with and (suspected) exposure to COVID-19
CPT/HCPCS: 0241U; 80053; 81025; 83690; 84703; 85025; 96374; 99284; J1885